=== PATIENT | male | born 1995 | race Caucasian/White ===

== ENCOUNTER 2018-06-16 10:28 | Inpatient (IN) | payer BC ==
[2018-06-16 10:53] VITALS: BMI 17.2
[2018-06-16] MEDS ORDERED: Lidocaine 1% (PF) 30 ML VIAL FS SCH (11:15)
[2018-06-16] MEDS ORDERED: traMADol HCl 50 MG TAB PO PRN ×2 (11:27)
[2018-06-16] MEDS ORDERED: Ketorolac Tromethamine 30 MG/ML VIAL IVP SCH (12:15)
[2018-06-16] MEDS: Acetaminophen 500 MG TAB PO SCH ×2 (13:22→18:46)
[2018-06-16] MEDS ORDERED: Ibuprofen 600 MG TAB PO SCH ×2 (14:00→22:00)
[2018-06-16] MEDS: Ketorolac Tromethamine 30 MG/ML VIAL IVP SCH (18:46)
[2018-06-16] MEDS ORDERED: Ondansetron ODT 4 MG TAB SL PRN (20:28)
[2018-06-16] MEDS ORDERED: Ondansetron ODT 8 MG TAB SL PRN (20:40)
--- NOTE | 2018-06-16 22:34 | PDOC.GSOPN ---
General Surgery Procedure Note - Operative Note Date: 06/16/18 Pre-op diagnosis: Left pneumothorax Post-op diagnosis: same Procedure: Left chest tube thoracostomy. Anesthesia: local Surgeon: Salas Snyder - Description of Procedure Details: The left chest was prepped and draped in a sterile fashion. Site was selected and numbed with lidocaine. A small incision was made at the anteroaxillary line at the level of the inframammary crease. Blunt dissection was performed down to the intercostal space. The pleural cavity was entered with the use of curved hemostats. A li of air was heard as the cavity was entered, a finger sweep was performed to ensure entrance into the pleural cavity. A 20 F chest tube was then inserted in the cavity and sutured into place. The chest tube was hooked up to the pleurevac and placed on suction. Pt tolerated the procedure well and there were no immediate complications.
[2018-06-17] MEDS: Acetaminophen 500 MG TAB PO SCH ×4 (00:08→18:07)
[2018-06-17] MEDS: Ketorolac Tromethamine 30 MG/ML VIAL IVP SCH ×4 (00:09→18:08)
--- NOTE | 2018-06-17 00:28 | HP ---
DATE OF ADMISSION: 06/16/2018 ATTENDING PHYSICIAN: Dr. Snyder. TRAUMA ACTIVATION: Not applicable. HISTORY OF PRESENT ILLNESS: This is a 22-year-old male who presented as a direct admission earlier t bita from outside facility/[facility]. The patient reports that he had been smoking marijuana when he felt a sudden onset of pleuritic chest pain. There was no trauma. The patient then presented to [facility] where he was evaluated and found to have a spontaneous left pneumothorax of approximately 20%. Despite high flow oxygen, the pneumothorax persisted. The patient was transferr ed to [facility] for further care. He was seen and evaluated upon arrival by Dr. Snyder. ALLERGIES: LATEX. HOME MEDICATIONS: None. CHRONIC MEDICAL ILLNESSES: The patient denies. PAST SURGICAL HISTORY: Tonsillectomy. 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 He endorses occasional alcohol use. He vapes and smokes occasional cigarettes. He endorses marijuana use, but denies other illicit drug use . FAMILY HISTORY: Patient denies any family history of any chronic medical problems. REVIEW OF SYSTEMS: A 10-point review of systems is obtained and negative except as indicated in the HPI. PHYSICAL EXAMINATION: VITAL SIGNS: On arrival, temperature 98.1, pulse 65, respiration 20, O2 sat 99% on room air, blood p ressure 118/77. GENERAL: A well-developed young male in no acute distress, resting in bed. PULMONARY: Normal work of breathing, symmetric rise. CARDIOVASCULAR: Regular rate and rhythm. GASTROINTESTINAL: Abdomen is soft, nontender, nondistended. Pulmonary breath sounds slightly dimini shed on the left. GASTROINTESTINAL: Abdomen is soft, nontender, nondistended. MUSCULOSKELETAL: Moves all extremities x4. NEUROLOGIC: GCS is 15. No focal deficit is noted. LABORATORY DATA: Outside records were reviewed by Dr. Snyder. RADIOGRAPHIC FINDINGS: X-rays were reviewed and report read as left pneumothorax approximately 20%. ASSESSMENT: 1. Spontaneous left pneumothorax. 2. Acute pleuritic chest pain secondary to above. 3. Marijuana, tobacco and vape use. PLAN: Left chest tube thoracostomy per Dr. Snyder shortly after arrival. Chest tube has pain managem ent via NSAIDs and p.o. analgesics. Morning chest x-ray. The patient should do incentive spirometry and pulmonary toileting. Plan for admission was discussed with patient and family at bedside. All questions were answered at the time of this dictation. Patient has been seen and evaluated by Dr. Andrew allen earlier in the day. This is a late dictation for him. ADDENDUM: I have seen and evaluated the patient this evening. Pain is controlled. Chest tube placed to [facility] and a.m. chest x-ray ordered. We will continue to monitor and follow. The patient was discussed with Dr. Snyder.
--- NOTE | 2018-06-17 08:44 | RAD ---
TWO AP VIEWS OF THE CHEST: INDICATION: History of pneumothorax. FINDINGS: There is a small left apical pneumothorax. There is a left-sided thoracostomy tube in place. Right lung is clear. No acute osseous abnormality is evident. IMPRESSION: Small left apical pneumothorax with left-sided thoracostomy tube. POS: [facility]
--- NOTE | 2018-06-17 14:54 | PRG-2 ---
DATE OF SERVICE: 06/17/2018 TEAM: Dr. Snyder. RESIDENT: Dwight Rocha DO SUBJECTIVE: This is a 22-year-old male, who presented to the ER with a left-sided pneumothorax. Layne burleson underwent chest tube placement yesterday and tolerated the procedure. This morning, the patient states that he is feeling much better and breathing much better. He states that he slept well overn ight. Does not complain of any trouble breathing, complains only of mild tenderness where the tube w as placed. Denies any nausea or vomiting. OBJECTIVE: VITAL SIGNS: Temperature 98.2, respirations 16, pulse 69, O2 sat 97 on room air, blood pressure 107/ 73. GENERAL: Patient is sitting up in chair, on a computer, in no acute distress. HEENT: Normocephalic, atraumatic. RESPIRATORY: The patient has good air movement in both lungs. The patient's breathing is nonlabored . CARDIAC: Regular rate and rhythm. No murmurs. GASTROINTESTINAL: Bowel sounds are present. No tenderness to palpation. IMAGING: Two AP views of the chest, there is a small left apical pneumothorax with left-sided thorac ostomy tube. LABORATORY DATA: None to review today. ASSESSMENT: 1. Spontaneous pneumothorax, status post chest tube placement. 2. Marijuana and tobacco use. PLAN: Left chest tube is properly in position per x-ray and hooked up to water lock and suction. Pl an for patient today is to remove chest tube at 3, barring no change in patient's condition and repea t chest x-ray tomorrow morning. Dr. Snyder saw this patient and we discussed their treatment and plan.
--- NOTE | 2018-06-17 17:02 | RAD ---
ONE VIEW CHEST: 06/17/18 COMPARISON: 06/17/18 at 7:27 a.m. HISTORY: Pneumothorax. Chest tube. FINDINGS: Stable left sided chest tube. Currently, left sided pneumothorax is not appreciated. However, there d oes appear to be subtle lucency between the posterior left third and fourth rib. Possibility of a tra ce apical pneumothorax cannot be completely excluded at this time. Stable aeration of the right lung and stable cardiac silhouette. IMPRESSION: No obvious pneumothorax. However. a trace left apical pneumothorax cannot be completely excluded. POS: [facility]
[2018-06-18] MEDS: Ketorolac Tromethamine 30 MG/ML VIAL IVP SCH ×3 (00:06→11:50)
[2018-06-18] MEDS: Acetaminophen 500 MG TAB PO SCH ×3 (00:06→11:50)
--- NOTE | 2018-06-18 08:59 | RAD ---
CHEST 1 VIEW: Date: 06/18/18 HISTORY: 22-year-old male with history of follow-up pneumothorax. COMPARISON: 06/17/18. FINDINGS: The left chest tube has been removed. Tiny residual left apical pneumothorax. Heart size is normal. T he right lung is clear. IMPRESSION: Removal of the left chest tube with a very tiny residual left apical pneumothorax. POS: [facility]
[2018-06-18 11:29] VITALS: BP 101/69; TEMP 98.4
== END 2018-06-18 14:17 | disposition home or self-care (01) | DRG 201 ==
LOC: SURG A 10:28 → OBSVTOIN 11:18
PROVIDERS: ADMIT Surgery; ATTEND Surgery
PROC: 0W9B30Z Drainage of Left Pleural Cavity with Drainage Device, Percutaneous Approach (ICD-10-PCS; principal; 2018-06-16)
DX: J93.83 Other pneumothorax (principal); F12.90 Cannabis use, unspecified, uncomplicated; Z72.0 Tobacco use; Z91.040 Latex allergy status
CPT/HCPCS: 71045; J1885; J2001; J2270; Q0162

== ENCOUNTER 2018-06-26 09:33 | Outpatient (CLI) | payer BC | END 2018-06-26 09:34 | disposition home or self-care (01) | LOC: BICRAD 09:33 | PROVIDERS: ATTEND Family Medicine | DX: J93.83 Other pneumothorax (principal) | CPT/HCPCS: 71045 ==

== ENCOUNTER 2019-01-14 11:54 | Emergency (ER) | payer BC ==
[2019-01-14] MEDS ORDERED: Morphine 4 MG/ML VIAL ONE (12:39)
--- NOTE | 2019-01-14 12:50 | RAD ---
SINGLE VIEW OF THE CHEST: Comparison: 06-18-18 History: Right sided chest pain starting 45 minutes ago. History of spontaneous pneumothorax. FINDINGS: Single view of the chest shows a normal sized cardiomediastinal silhouette. There is a moderate right sided pneumothorax without shift of the mediastinum. No pleural effusion or infiltrate is seen. IMPRESSION: Moderate right pneumothorax. Dr. Haney notified of the findings at 12:43 p.m. 01-14-19. POS: [facility]
[2019-01-14] MEDS ORDERED: Lidocaine 1% w/Epinephrine 1:100K 20 ML VIAL ONE (13:39)
--- NOTE | 2019-01-14 14:32 | RAD ---
RADIOGRAPH CHEST 1 VIEW: Date: 01/14/19 Time: 1416 HOURS HISTORY: 23-year-old male with right pneumothorax. Check pleural catheter placement. COMPARISON: 01/14/19 at 1222 hours. FINDINGS: There is a new finding of a small bore catheter overlapping the lateral aspect of the right 7th rib, with distal tip projecting approximately 3 cm superomedially from that overlap point. The moderate si ze right pneumothorax remains unchanged. Cardiomediastinal silhouette remains normal at midline. Lung s remain clear. Lateral costophrenic angles are sharp. IMPRESSION: 1. Right-sided small caliber pleural catheter placement. 2. No interval change of the moderate right pneumothorax. JN [] POS: [facility]
--- NOTE | 2019-01-14 14:52 | OP ---
DATE OF PROCEDURE: 01/14/2019 PROCEDURE PERFORMED: Small bore right chest tube placement. PREOPERATIVE DIAGNOSIS: First episode of spontaneous right pneumothorax. POSTOPERATIVE DIAGNOSIS: First episode of spontaneous right pneumothorax. ANESTHESIA: 1% lidocaine, local anesthesia. INDICATIONS: The patient is a 23-year-old with sudden onset of pleuritic right-sided chest pain, who was found to have a right-sided pneumothorax on chest x-ray. FINDINGS: No significant air li upon entering the chest. NARRATIVE REPORT: After informed consent was obtained, the patient's right anterolateral chest was prepped and draped in sterile fashion. 1% lidocaine was used to infiltrate the skin and subcutaneous tissues. A little anterior to the anterior axillary line about the level of the xiphoid or 1 interspace above, a skin madison was made with a scalpel blade and the small bore catheter was inserted and advanced over its trocar needle. Twin stopcocks were applied and using a 60 mL syringe about a 100 or 150 mL of air was aspirated and then, Heimlich valve was affixed. The line was secured with suture and tape and was dressed. Chest x-ray is pending. Job ID: [id number]
--- NOTE | 2019-01-14 20:47 | CON ---
DATE OF CONSULTATION: 01/14/2019 CHIEF COMPLAINT: Pleuritic right chest pain. HISTORY OF PRESENT ILLNESS: The patient is a 23-year-old who apparently smokes marijuana on a fairly regular basis, but has no other major medical problems. He had a spontaneous left-sided pneumothorax in June of last year, associated with a fit of coughing that was successfully treated with conventional chest tube. He has done well until today when while at work with no exertion beyond picking up a tray of dishes. He spontaneously developed sharp pain in his right chest. It progressed and he recognized it as being similar to the pain of his left-sided pneumothorax and he presented to the emergency room. Chest x-ray demonstrated a right-sided pneumothorax. PAST MEDICAL HISTORY: Otherwise noncontributory. MEDICINES: He takes no medicines on a regular basis. ALLERGIES: HE REPORTS ITCHING AND SEVERE NAUSEA WITH TRAMADOL AND MULTIPLE CODEINE AND SYNTHETIC CODEINE DERIVATIVES. SOCIAL HISTORY: He does not smoke cigarettes, but smokes marijuana. REVIEW OF SYSTEMS: Not had any recent illnesses. He has not had any trauma. PHYSICAL EXAMINATION: VITAL SIGNS: Heart rate is 60, blood pressure 109/85, room air O2 saturations are 93%. CHEST: Clear to auscultation with perhaps some decreased breath sounds on the right side. There is no tracheal deviation. No crepitus. ABDOMEN: Soft and nontender. He has no evidence of trauma externally. IMAGING: His chest x-ray shows a modest size apical lateral pneumothorax on the right side. Old films showed a left-sided chest tube. IMPRESSION AND PLAN: First episode of spontaneous right pneumothorax. We will plan on small bore catheter placement to evacuate his pneumothorax. Job ID: [id number]
== END 2019-01-14 15:12 | disposition home or self-care (01) ==
LOC: ERS 11:54
DX: J93.83 Other pneumothorax (principal); Z71.6 Tobacco abuse counseling; F41.9 Anxiety disorder, unspecified; F17.290 Nicotine dependence, other tobacco product, uncomplicated
CPT/HCPCS: 32551; 71045; 93005; 94760; 96361; 96374; 99406; J2001; J2270

== ENCOUNTER 2019-01-22 15:10 | Outpatient (CLI) | payer BC ==
--- NOTE | 2019-01-22 15:31 | RAD ---
2 views of the chest 01/22/2019 COMPARISON: 01/14/2019 HISTORY: Reevaluate right-sided pneumothorax FINDINGS: There is a persistent small/moderate pneumothorax on the right. It has decreased in size sl ightly when compared to the 01/14/2019 examination. Small caliber chest tube overlies the lateral aspect of the right hemithorax. The tip overlies the inner cortex of the lateral aspect of the right seventh rib, which appears to have retracted since the prior examination. Clinical correlation for function of catheter tubing required. No left-sided pneumothorax. Heart and mediastinal contours are stable. IMPRESSION: Small/moderate persistent pneumothorax on the right, decreased slightly in volume when co mpared to the 01/14/2019 examination. Small caliber right-sided chest tube as above. Pneumothorax discussed with Dr. Lainez at 3:25 PM 01/22/2019
== END 2019-01-22 15:11 | disposition home or self-care (01) ==
LOC: RAD 15:10
PROVIDERS: ATTEND Thoracic Surgery (Cardiothoracic Vascular Surgery)
DX: J93.9 Pneumothorax, unspecified (principal)
CPT/HCPCS: 71046

== ENCOUNTER 2019-01-29 14:21 | Outpatient (CLI) | payer BC ==
--- NOTE | 2019-01-29 16:39 | RAD ---
PA AND LATERAL CHEST: Date: 01/29/19 INDICATION: History of pneumothorax. COMPARISON: Prior exam dated 01/22/19. FINDINGS: The right-sided thoracostomy tube has been removed. There is a tiny residual right apical pneumothora x. This is decreased in size from the prior exam where it was small to moderate in size. Left lung is clear. Osseous structures are unremarkable appearing. IMPRESSION: Reduction in size of the right-sided pneumothorax. Small residual right apical pneumothorax remains. Previously seen right-sided thoracostomy tube has been removed. POS: [facility]
== END 2019-01-29 14:22 | disposition home or self-care (01) ==
LOC: RAD 14:21
PROVIDERS: ATTEND Thoracic Surgery (Cardiothoracic Vascular Surgery)
DX: J93.9 Pneumothorax, unspecified (principal); Z98.890 Other specified postprocedural states
CPT/HCPCS: 71046